=== PATIENT | female | born 1985 | race Asian ===

== ENCOUNTER 2017-03-02 21:29 | Emergency (ER) | payer SELFPAY ==
[~2017-03-02] VITALS: Ht 157.5 cm; Wt 54.9 kg
[2017-03-02 21:45] VITALS: TEMP 36.8; Ht 157.5 cm; Wt 54.9 kg
--- NOTE | 2017-03-02 22:21 | EMERGENCY ROOM VISIT NOTE ---
History Report prepared by Mónica: Jesse Nicholas Under the Supervision of: Dr. Galo Fischer M.D. First contact with patient: 22:09 Chief Complaint: FLU LIKE SX Stated Complaint: FLU LIKE SICK, AFTER EATING History of Present Illness The patient is a 31 year old female with a past medical history of asthma and gum disease who presents to the ED with a cc of constant vomiting after eating beginning two days ago. Pt states she cannot eat without vomiting. She is able to drink water only. Positive shakiness for the past two weeks, chills for the past two days that have worsened today. Negative cough, abdominal pain, recent antibiotics, alcohol use. LNMP was two weeks ago. The patient takes singular and albuterol. Source of History: patient Onset: two days ago Position: other (global) Quality: other (vomiting) Timing: constant Modifying Factors (Worsening): eating Associated Symptoms: + chills, No cough, No abdominal pain Note: Associated symptoms: shakiness Review of Systems See HPI for pertinent positives and negatives. A total of ten systems were reviewed and were otherwise negative. Past Medical & Surgical Medical Problems: (1) Asthma (2) Gum disease Family History Patient reports no known family medical history. Social History Smoking Status: Never Smoker Alcohol Use: none Marital Status: single Occupation Status: employed Current/Historical Medications Scheduled Cephalexin (Keflex), 1 CAP PO BID Fexofenadine Hcl (Ria Allergy), 180 MG PO DAILY Montelukast Sodium (Singulair), 10 MG PO HS Scheduled PRN Albuterol Hfa (Ventolin Hfa), 2-4 PUFFS INH Q6H PRN for SOB/Wheezing Allergies Coded Allergies: Avocado (Verified Allergy, Severe, SHORTNESS OF BREATH, 03/02/17) Cat Dander (Verified Allergy, Severe, ASTHMA ATTACK, 03/02/17) Chocolate (Verified Allergy, Severe, SHORTNESS OF BREATH, 03/02/17) Dog Dander (Verified Allergy, Severe, ASTHMA ATTACK, 03/02/17) Nut Tree (Verified Allergy, Severe, SHORTNESS OF BREATH, 03/02/17) Physical Exam Vital Signs Date Time Temp Pulse Resp B/P (MAP) Pulse Ox O2 Delivery O2 Flow Rate FiO2 03/03/17 00:29 82 16 108/72 96 03/02/17 21:45 36.8 78 16 106/69 96 Room Air Physical Exam GENERAL: Awake, alert, well-appearing, NAD HENT: Normocephalic, atraumatic. EYES: Normal conjunctiva. Sclera non-icteric. NECK: Supple. No nuchal rigidity. FROM. RESPIRATORY: CTAB, no rhonchi, wheezing, crackles CARDIAC: RRR, no MRG ABDOMEN: Soft, ND, BS+, mild epigastric pain. MSK: No chest wall TTP, no LE edema NEURO: GCS 15, CN 2-12 intact, moves all 4s on command SKIN: No rash or jaundice noted. Medical Decision & Procedures Laboratory Results 03/02/17 23:07 Red Blood Count 5.47, Mean Corpuscular Volume 63.4, Mean Corpuscular Hemoglobin 19.9, Mean Corpuscular Hemoglobin Concent 31.4, Mean Platelet Volume 10.4, Neutrophils (%) (Auto) 66.8, Lymphocytes (%) (Auto) 21.0, Monocytes (%) (Auto) 8.4, Eosinophils (%) (Auto) 3.3, Basophils (%) (Auto) 0.2, Neutrophils # (Auto) 8.00, Lymphocytes # (Auto) 2.51, Monocytes # (Auto) 1.01, Eosinophils # (Auto) 0.39, Basophils # (Auto) 0.02 03/02/17 23:07 Test 03/02/17 00:00 03/02/17 23:07 Urine Color YELLOW Urine Appearance CLOUDY (CLEAR) Urine pH 7.0 (4.5-7.5) Urine Specific [place] 1.023 (1.000-1.030) Urine Protein NEG (NEG) Urine Glucose (UA) NEG (NEG) Urine Ketones NEG (NEG) Urine Occult Blood NEG (NEG) Urine Nitrite NEG (NEG) Urine Bilirubin NEG (NEG) Urine Urobilinogen NEG (NEG) Urine Leukocyte Esterase SMALL (NEG) Urine WBC (Auto) 5-10 /hpf (0-5) Urine RBC (Auto) 0-4 /hpf (0-4) Urine Hyaline Casts (Auto) 1-5 /lpf (0-5) Urine Epithelial Cells (Auto) >30 /lpf (0-5) Urine Bacteria (Auto) 1+ (NEG) Urine Test POS (NEG) White Blood Count 11.97 K/uL (4.8-10.8) Red Blood Count 5.47 M/uL (4.2-5.4) Hemoglobin 10.9 g/dL (12.0-16.0) Hematocrit 34.7 % (37-47) Mean Corpuscular Volume 63.4 fL (80-100) Mean Corpuscular Hemoglobin 19.9 pg (25-34) Mean Corpuscular Hemoglobin Concent 31.4 g/dl (32-36) Platelet Count 287 K/uL (130-400) Mean Platelet Volume 10.4 fL (7.4-10.4) Neutrophils (%) (Auto) 66.8 % Lymphocytes (%) (Auto) 21.0 % Monocytes (%) (Auto) 8.4 % Eosinophils (%) (Auto) 3.3 % Basophils (%) (Auto) 0.2 % Neutrophils # (Auto) 8.00 K/uL (1.4-6.5) Lymphocytes # (Auto) 2.51 K/uL (1.2-3.4) Monocytes # (Auto) 1.01 K/uL (0.11-0.59) Eosinophils # (Auto) 0.39 K/uL (0-0.5) Basophils # (Auto) 0.02 K/uL (0-0.2) RDW Standard Deviation 33.5 fL (36.4-46.3) RDW Coefficient of Variation 14.7 % (11.5-14.5) Immature Granulocyte % (Auto) 0.3 % Immature Granulocyte # (Auto) 0.04 K/uL (0.00-0.02) Microcytosis PRESENT Anion Gap 6.0 mmol/L (3-11) Est Creatinine Clear Calc Drug Dose 180.8 ml/min Estimated GFR () > 150.0 Estimated GFR (Non- 144.7 BUN/Creatinine Ratio 30.4 (10-20) Calcium Level 8.3 mg/dl (8.5-10.1) Total Bilirubin 0.3 mg/dl (0.2-1) Direct Bilirubin 0.1 mg/dl (0-0.2) Aspartate Amino Transf (AST/SGOT) 9 U/L (15-37) Alanine Aminotransferase (ALT/SGPT) 15 U/L (12-78) Alkaline Phosphatase 47 U/L (45-117) Total Protein 7.6 gm/dl (6.4-8.2) Albumin 3.6 gm/dl (3.4-5.0) Lipase 196 U/L (73-393) Human Chorionic Gonadotropin, Quant 25735 mIU/mL Laboratory results reviewed by me Medications Administered Medications (Trade) Dose Ordered Sig/Zofia Route Start Time Stop Time Status Last Admin Dose Admin Ondansetron HCl (Zofran Inj) 4 mg NOW STAT IV 03/02/17 22:30 03/02/17 22:32 DC 03/02/17 23:08 4 MG Acetaminophen (Tylenol Tab) 1,000 mg NOW STAT PO 03/02/17 22:30 03/02/17 22:32 DC 03/02/17 23:08 1,000 MG Cephalexin Monohydrate (Keflex Cap) 500 mg NOW ONCE PO 03/02/17 23:15 03/02/17 23:16 DC 03/02/17 23:34 500 MG ED Course 2216: The patient was evaluated in room C11B. A complete history and physical exam was performed. 2354: I spoke with the patient via the disc pad plate filler. She understands what medication she can use. I told her to follow up with [facility] in [place] where she is originally from. The patient understands and agrees to the treatment plan and discharge instructions. Medical Decision The patient is a 31 year old female with a past medical history of asthma and gum disease who presents to the ED with a cc of constant vomiting after eating beginning two days ago. Differential diagnosis: Etiologies such as gastroenteritis, food borne illness, infections, appendicitis , diverticulitis, inflammatory bowel disease, obstruction, GI bleed, biliary pathology, as well as others were entertained. Patient was seen and evaluated the bedside. Patient had been complaining some mild vomiting after eating beginning 2 days ago. Patient denied any recent travel. Patient had a fairly unremarkable exam except for some mild epigastric discomfort however she had a soft abdomen and no right upper quadrant pain. Patient did have blood work completed along with a urinalysis and UPT. Patient did have a positive test test with possible concerns for UTI. In light of the patient's positive test patient was treated for UTI with Keflex. I did talk to the patient with the help of the mobile disc pad plate filler. Patient has had 1 prior in the past in 2005 the child is still living and is well. Patient's last menstrual period was February 22. I told the patient that given the recent positive in light of the recent menstrual period we would not likely see anything on ultrasound. Patient was told that she needs to take vitamins and avoid things like alcohol and tobacco. Patient may continue to take her allergy medications which should discuss this under the advisement of an [facility]. Patient was offered [facility] follow-up here; however, the patient states that while she works appear occasionally her home address is in [place] and she would seek care there. Patient did have a beta Quant that was sent along with blood work. Patient does have some mild anemia. Patient's MCV is low. Patient was instructed to follow-up with her [facility] to discuss iron supplementation. Patient had normal LFTs and lipase. Patient was able tolerate by mouth. Patient was deemed suitable for outpatient follow-up and treatment at this time.Patient was given strict follow-up, discharge, and return precautions. All questions were answered. Patient was deemed suitable for outpatient follow-up at this time. Patient agreed with the plan of care and was safely discharged home. Impression Primary Impression: Additional Impression: UTI (urinary tract infection) Scribe Attestation The scribe's documentation has been prepared under my direction and personally reviewed by me in its entirety. I confirm that the note above accurately reflects all work, treatment, procedures, and medical decision making performed by me. Departure Information Dispostion Home / Self-Care Prescriptions Cephalexin (KEFLEX) 500 Mg Cap 1 CAP PO BID for 7 Days, #14 CAP Prov: Galo Fischer M.D. 03/03/17 Referrals No Doctor, Assigned (PCP) Forms HOME CARE DOCUMENTATION FORM, IMPORTANT VISIT INFORMATION Patient Instructions ED UTI Cystitis Female, My [facility], Preg 1st Trimester, Preg Nutrition Additional Instructions Please return to the emergency department if you have worsening or recurrent symptoms not amenable to at-home treatment. Please call for a follow-up appointment with her primary care physician. Please take your medications as prescribed. If you have other concerns and/or complaints please feel free to also call your primary care physician's office or return the ED for further evaluation, management, and treatment. Take your medications as prescribed. If taking an antibiotic consider taking a probiotic and/or eating yogurt, but at the least, please take with food as it can cause upset stomach. Please take vitamins and avoid things like alcohol and tobacco. Also avoid NSAIDs like aspirin, Motrin, Aleve, and naproxen. Please follow-up with an [facility] physician when you return here home in [place]. You have been examined and treated today on an emergency basis only. This is not a substitute for, or an effort to provide, complete comprehensive medical care. It is impossible to recognize and treat all injuries or illnesses in a single emergency department visit. It is therefore important that you follow up closely with [facility], your PCP, and/or your specialist(s). Call as soon as possible for an appointment. Thank you for your time and consideration. I look forward to speaking with you again soon. Please don't hesitate to call us if you have any questions. Problem Qualifiers Primary Impression: Weeks of gestation: less than 8 weeks Qualified Codes: Z3A.01 - Less than 8 weeks gestation of Additional Impression: UTI (urinary tract infection) Urinary tract infection type: acute cystitis Hematuria presence: without hematuria Qualified Codes: N30.00 - Acute cystitis without hematuria
[2017-03-02] MEDS ORDERED: ONDANSETRON INJ 2 MG/ML 2 ML VIAL IV STA (22:30)
[2017-03-02] MEDS ORDERED: ACETAMINOPHEN 500 MG TAB PO STA (22:30)
[2017-03-02] MEDS ORDERED: KETOROLAC TROMETHAMINE 30 MG/ML VIAL IV STA (22:30)
[2017-03-02 23:06] LABS: URINE APPEARANCE CLOUDY (CLEAR); URINE BILIRUBIN NEG (NEG); URINE COLOR YELLOW; URINE EPITHELIAL CELL AUTO >30 /lpf (0-5); URINE NITRITE NEG (NEG); URINE SPECIFIC GRAVITY 1.023 (1.000-1.030); UROBILINOGEN NEG (NEG); ZZUR CULT IF INDIC CLEAN CATCH YES
[2017-03-02 23:07] LABS: MANUAL MICROSCOPIC REQUIRED? NO; REVIEW REQ? NO
[2017-03-02] MEDS ORDERED: CEPHALEXIN MONOHYDRATE 250 MG CAP PO ONE (23:15)
[2017-03-02 23:21] LABS: BASO % 0.2 %; BASO ABS # 0.02 K/uL (0-0.2); EOS % 3.3 %; HEMATOCRIT 34.7 % (37-47); IG% 0.3 %; LYMPH ABS # 2.51 K/uL (1.2-3.4); MEAN CELL VOLUME 63.4 fL (80-100); MEAN CORPUSCULAR HEMOGLOBIN 19.9 pg (25-34); MEAN CORPUSCULAR HGB CONC 31.4 g/dl (32-36); MEAN PLATELET VOLUME 10.4 fL (7.4-10.4); MONO % 8.4 %; NEUT % 66.8 %; PLATELET COUNT 287 K/uL (130-400); RED BLOOD COUNT 5.47 M/uL (4.2-5.4); WHITE BLOOD COUNT 11.97 K/uL (4.8-10.8)
[2017-03-02 23:42] LABS: ALT/SGPT 15 U/L (12-78); BLOOD UREA NITROGEN 11 mg/dl (7-18); BUN/CREATININE RATIO 30.4 (10-20); CALCIUM 8.3 mg/dl (8.5-10.1); CARBON DIOXIDE 24 mmol/L (21-32); CHLORIDE 109 mmol/L (98-107); CREATININE 0.36 mg/dl (0.60-1.20); GLUCOSE 90 mg/dl (70-99); POTASSIUM 3.5 mmol/L (3.5-5.1); SODIUM 139 mmol/L (136-145)
[2017-03-02 23:45] LABS: ALKALINE PHOSPHATASE 47 U/L (45-117); AST/SGOT 9 U/L (15-37)
[2017-03-03] MEDS ORDERED: CEPH-571 PO (00:15)
[2017-03-03 00:25] LABS: COMPLETE YES; MICROCYTOSIS PRESENT
[2017-03-03 00:29] VITALS: BP 108/72; PULSE 82; O2SAT 96
--- NOTE | 2017-03-05 12:12 | Pharmacy Progress Note ---
ED Pharmacist Culture FollowUp Date of Service: Mar 05, 2017. Patient was sent home with a prescription for Cephalexin 500mg PO BId x 7 days, which should cover the e coli growing from the patient's URINE culture.
== END 2017-03-03 00:30 | disposition home or self-care (01) ==
LOC: C.EDB 21:33 → C.EDC 03-03 00:30
DX: O23.41 Unspecified infection of urinary tract in pregnancy, first trimester (principal); O99.511 Diseases of the respiratory system complicating pregnancy, first trimester; J45.909 Unspecified asthma, uncomplicated; Z3A.01 Less than 8 weeks gestation of pregnancy; Z79.899 Other long term (current) drug therapy

== ENCOUNTER 2017-03-06 19:53 | Inpatient (IN) | payer SELFPAY ==
[~2017-03-06] VITALS: Ht 165.1 cm; Wt 54.2 kg
[~2017-03-06 19:53] MED LIST: CEPH-571 PO
[2017-03-06] MEDS ORDERED: SODIUM CHLORIDE 0.9% 1000ML 1,000 ML IV SCH (20:30)
[2017-03-06 20:37] LABS: URINE APPEARANCE CLOUDY (CLEAR); URINE BILIRUBIN NEG (NEG); URINE COLOR YELLOW; URINE EPITHELIAL CELL AUTO >30 /lpf (0-5); URINE NITRITE NEG (NEG); URINE PH 7.5 (4.5-7.5); URINE SPECIFIC GRAVITY 1.019 (1.000-1.030); UROBILINOGEN NEG (NEG); ZZUR CULT IF INDIC CLEAN CATCH YES
--- NOTE | 2017-03-06 20:40 | EMERGENCY ROOM VISIT NOTE ---
History First contact with patient: 20:02 Chief Complaint: ABDOMINAL PAIN Stated Complaint: UTI Nursing Triage Summary: + . C/o worsening abdominal pain. Seen here last 3 days for same s/s. History of Present Illness The patient is a 31 year old female who presents to the Emergency Room with complaints of right flank pain for one day Patient is . LMP was . She reports right sided constant pain. She describes the pain as pressure, as if someone is hitting in her side. Patient reports associated nausea with the pain, but denies throwing up. She also reports some general abdominal pain that is worse with food. She denies abnormal vaginal bleeding, discharge or vaginal rash or itching. Patient also denies hematuria, dysuria or increased frequency. She does report feeling fatigued, jittery and having palpitations since finding out that she is . Review of Systems see below Constitutional: No fever, No chills, No sweats Respiratory: No cough, No wheezing, No shortness of breath, No dyspnea on exertion Cardiovascular: + palpitations, No chest pain, No edema Abdomen: + pain, + nausea, No vomiting, No diarrhea Genitourinary - Female: No dysuria, No urinary frequency, No urinary urgency , No hematuria Past Medical/Surgical History Medical Problems: (1) Asthma (2) Gum disease Family History Patient reports no known family medical history. Social History Smoking Status: Never Smoker Alcohol Use: none Marital Status: single Occupation Status: employed Current/Historical Medications Scheduled Cephalexin (Keflex), 1 CAP PO BID Fexofenadine Hcl (Ria Allergy), 180 MG PO DAILY Montelukast Sodium (Singulair), 10 MG PO HS Scheduled PRN Albuterol Hfa (Ventolin Hfa), 2-4 PUFFS INH Q6H PRN for SOB/Wheezing Physical Exam Vital Signs Date Time Temp Pulse Resp B/P (MAP) Pulse Ox O2 Delivery O2 Flow Rate FiO2 03/06/17 19:57 36.7 82 18 109/59 97 Room Air Physical Exam see below General Appearance: WD/WN, no apparent distress Head: normocephalic, atraumatic Respiratory/Chest: chest non-tender, lungs clear, normal breath sounds, no respiratory distress, no accessory muscle use Cardiovascular: regular rate, rhythm, no edema, no gallop Abdomen / GI: normal bowel sounds, soft, no organomegaly, no pulsatile mass , + tenderness Back: no CVA tenderness Neurologic/Psych: alert, normal mood/affect, normal reflexes Medical Decision & Procedures ER Provider Diagnostic Interpretation: <14 WKS SINGLE CLINICAL HISTORY: Abdominal pain. . COMPARISON STUDY: No previous studies for comparison. TECHNIQUE: Sonography of the pelvis was performed. FINDINGS: Intrauterine gestational sac is noted which contains a yolk sac that measures 4 mm in size. A pole is noted with a crown-rump length of 8.3 mm which corresponds to an estimated gestational age of 6 weeks and 5 days. heart rate is normal 138 bpm. There is a 1.4 x 1 x 1.8 cm suspected subchorionic hematoma. The right ovary is normal. There is a 1.9 cm left ovarian corpus luteal cyst. No free fluid is identified. IMPRESSION: 1. Single viable intrauterine gestation with estimated gestational age of 6 weeks and 5 days on this exam. Normal heart rate of 138 bpm. 2. Suspected small subchorionic hematoma measuring 1.8 x 1.4 x 1 cm. 3. Left ovarian corpus luteal cyst. RENAL ULTRASOUND CLINICAL HISTORY: Right flank pain. Urinary tract infection. . COMPARISON STUDY: None. TECHNIQUE: Sonography of the kidneys and the urinary bladder was performed. FINDINGS: The right kidney measures 11.7 cm in maximal dimension and the left measures 11.2 cm. No calculi or masses are identified by sonography. The left ureteral jet was visualized. The right ureteral jet was not visualized. There is slight dilatation of each collecting system without bandar hydronephrosis. IMPRESSION: 1. Slight dilatation of each collecting system without bandar hydronephrosis. No calculi identified by sonography. 2. Nonvisualization of the right ureteral jet. Electronically signed by: Khanh Degroot M.D. 03/06/2017 10:10 PM Dictated Date/Time: 03/06/2017 10:08 PM Laboratory Results 03/06/17 20:55 Red Blood Count 5.53, Mean Corpuscular Volume 62.6, Mean Corpuscular Hemoglobin 20.1, Mean Corpuscular Hemoglobin Concent 32.1, Mean Platelet Volume 10.6, Neutrophils (%) (Auto) 63.2, Lymphocytes (%) (Auto) 25.4, Monocytes (%) (Auto) 8.7, Eosinophils (%) (Auto) 2.5, Basophils (%) (Auto) 0.1, Neutrophils # (Auto) 6.51, Lymphocytes # (Auto) 2.62, Monocytes # (Auto) 0.90, Eosinophils # (Auto) 0.26, Basophils # (Auto) 0.01 03/06/17 20:55 Test 03/06/17 20:03 03/06/17 20:55 Urine Color YELLOW Urine Appearance CLOUDY (CLEAR) Urine pH 7.5 (4.5-7.5) Urine Specific [place] 1.019 (1.000-1.030) Urine Protein NEG (NEG) Urine Glucose (UA) NEG (NEG) Urine Ketones NEG (NEG) Urine Occult Blood TRACE (NEG) Urine Nitrite NEG (NEG) Urine Bilirubin NEG (NEG) Urine Urobilinogen NEG (NEG) Urine Leukocyte Esterase LARGE (NEG) Urine WBC (Auto) >30 /hpf (0-5) Urine RBC (Auto) 0-4 /hpf (0-4) Urine Hyaline Casts (Auto) 1-5 /lpf (0-5) Urine Epithelial Cells (Auto) >30 /lpf (0-5) Urine Bacteria (Auto) 1+ (NEG) White Blood Count 10.31 K/uL (4.8-10.8) Red Blood Count 5.53 M/uL (4.2-5.4) Hemoglobin 11.1 g/dL (12.0-16.0) Hematocrit 34.6 % (37-47) Mean Corpuscular Volume 62.6 fL (80-100) Mean Corpuscular Hemoglobin 20.1 pg (25-34) Mean Corpuscular Hemoglobin Concent 32.1 g/dl (32-36) Platelet Count 281 K/uL (130-400) Mean Platelet Volume 10.6 fL (7.4-10.4) Neutrophils (%) (Auto) 63.2 % Lymphocytes (%) (Auto) 25.4 % Monocytes (%) (Auto) 8.7 % Eosinophils (%) (Auto) 2.5 % Basophils (%) (Auto) 0.1 % Neutrophils # (Auto) 6.51 K/uL (1.4-6.5) Lymphocytes # (Auto) 2.62 K/uL (1.2-3.4) Monocytes # (Auto) 0.90 K/uL (0.11-0.59) Eosinophils # (Auto) 0.26 K/uL (0-0.5) Basophils # (Auto) 0.01 K/uL (0-0.2) RDW Standard Deviation 32.8 fL (36.4-46.3) RDW Coefficient of Variation 14.5 % (11.5-14.5) Immature Granulocyte % (Auto) 0.1 % Immature Granulocyte # (Auto) 0.01 K/uL (0.00-0.02) Microcytosis PRESENT Anion Gap 7.0 mmol/L (3-11) Est Creatinine Clear Calc Drug Dose 167.6 ml/min Estimated GFR () > 150.0 Estimated GFR (Non- 137.5 BUN/Creatinine Ratio 23.3 (10-20) Calcium Level 8.5 mg/dl (8.5-10.1) Total Bilirubin 0.3 mg/dl (0.2-1) Aspartate Amino Transf (AST/SGOT) 9 U/L (15-37) Alanine Aminotransferase (ALT/SGPT) 12 U/L (12-78) Alkaline Phosphatase 42 U/L (45-117) Total Protein 7.3 gm/dl (6.4-8.2) Albumin 3.5 gm/dl (3.4-5.0) Globulin 3.8 gm/dl (2.5-4.0) Albumin/Globulin Ratio 0.9 (0.9-2) Human Chorionic Gonadotropin, Quant 47379 mIU/mL Medications Administered Medications (Trade) Dose Ordered Sig/Zofia Route Start Time Stop Time Status Last Admin Dose Admin Sodium Chloride 1,000 ml @ 999 mls/hr Q1H1M IV 03/06/17 20:30 04/05/17 20:29 03/06/17 21:07 999 MLS/HR Ceftriaxone Sodium (Rocephin Inj) 1 gm NOW STAT IV 03/06/17 21:05 03/06/17 21:06 DC 03/06/17 21:19 1 GM Medical Decision 31 female comes into the ED with right sided tenderness for one day Patient was seen in the ED on Mar 03 and treated for a urinary tract infection with Keflex. Patient reports being 2 weeks ; LMP was 2 weeks ago. Today considering the following differential for the abdominal pain; pyelonephritis, kidney stone, ectopic , gastroenteritis, muscle strain. Ordered the following labs; UA, CBC, CMP, USG of pelvis and kidney. Patient was given 1L NS bolus. UA was positive for infection; patient was given 1g of Rocephin. Previous ED visit showed pansensitive Ecoli. Patient had a WBC of 10.1 and was afebrile. Renal USG showed dilation of the collecting system without bandar hydro, no urethral jet. Pelvic USG showed 6 week, 5 day fetus. heart rate, 138. In summary, the patient has failed treatment for UTI and now is presenting with a potential ascending infection. The patient is 6 weeks and is not currently being followed for care. Discussed the case with Dr. Davidson from OBGYN. She recommended the patient to be admitted and treated by the medicine service. Discussed the case with the hospitalist, Dr. Harmon. In addition, case management discussed with the patient regarding follow up and insurance options. Patient is Mongolian and cannot speak Chilean. is able to understand and can speak limited Chilean. Used video translation service for detailed interviewing. Impression Primary Impression: Pyelonephritis during Departure Information Referrals No Doctor, Assigned (PCP) Patient Instructions My [facility] [employer] Additional Instructions Acetaminophen(Tylenol) may be used for fever or pain. Use 1000mg every eight hours as needed. Avoid using more than 3000mg in a 24 hour period. This is available over the counter. Read all the package inserts or medication information paperwork provided. If you have any questions or concerns call your primary provider, pharmacist or the ER for assistance. Rest and drink plenty of fluids as tolerated. Slow sips of water or sports drinks are recommended instead of large amounts all at once. Continue current medications. Once your stomach is settled start with a clear liquid diet (jello, soup broth, etc.) and then advance as tolerated. You should avoid full, heavy meals for about 24 hrs from the time your symptoms resolved. Return to the ER immediately for worsening or persistent abdominal/back pain, vomiting, fevers, worsening of your condition, or as needed. Follow up with your primary physician within 2-3 days for a recheck of the current condition
[2017-03-06 20:48] LABS: MANUAL MICROSCOPIC REQUIRED? NO; REVIEW REQ? NO
[2017-03-06] MEDS ORDERED: CEFTRIAXONE SOD INJ 1 GM ADDVIAL IV STA (21:05)
[2017-03-06 21:07] LABS: BASO % 0.1 %; BASO ABS # 0.01 K/uL (0-0.2); EOS % 2.5 %; HEMATOCRIT 34.6 % (37-47); IG% 0.1 %; LYMPH % 25.4 %; LYMPH ABS # 2.62 K/uL (1.2-3.4); MEAN CELL VOLUME 62.6 fL (80-100); MEAN CORPUSCULAR HEMOGLOBIN 20.1 pg (25-34); MEAN CORPUSCULAR HGB CONC 32.1 g/dl (32-36); MEAN PLATELET VOLUME 10.6 fL (7.4-10.4); MONO % 8.7 %; NEUT % 63.2 %; PLATELET COUNT 281 K/uL (130-400); RED BLOOD COUNT 5.53 M/uL (4.2-5.4); WHITE BLOOD COUNT 10.31 K/uL (4.8-10.8)
[2017-03-06 21:23] LABS: ALT/SGPT 12 U/L (12-78); BLOOD UREA NITROGEN 10 mg/dl (7-18); BUN/CREATININE RATIO 23.3 (10-20); CALCIUM 8.5 mg/dl (8.5-10.1); CARBON DIOXIDE 25 mmol/L (21-32); CHLORIDE 106 mmol/L (98-107); CREATININE 0.42 mg/dl (0.60-1.20); GLUCOSE 85 mg/dl (70-99); POTASSIUM 3.5 mmol/L (3.5-5.1); SODIUM 138 mmol/L (136-145)
[2017-03-06 21:26] LABS: ALB/GLOB RATIO 0.9 (0.9-2); ALKALINE PHOSPHATASE 42 U/L (45-117); AST/SGOT 9 U/L (15-37)
[2017-03-06 21:38] LABS: COMPLETE YES; MICROCYTOSIS PRESENT
--- NOTE | 2017-03-06 22:10 | EMERGENCY ROOM VISIT NOTE ---
ED Visit Note First contact with patient: 20:02 Resident Physician Supervision Note: I was present with Dr. Jo during the history and exam. I discussed the case with the resident and agree with the findings and plan as documented in the note. Documented By: aSe Villar
--- NOTE | 2017-03-06 22:11 | DIAGNOSTIC IMAGING REPORT ---
RENAL ULTRASOUND CLINICAL HISTORY: Right flank pain. Urinary tract infection. . COMPARISON STUDY: None. TECHNIQUE: Sonography of the kidneys and the urinary bladder was performed. FINDINGS: The right kidney measures 11.7 cm in maximal dimension and the left measures 11.2 cm. No calculi or masses are identified by sonography. The left ureteral jet was visualized. The right ureteral jet was not visualized. There is slight dilatation of each collecting system without bandar hydronephrosis. IMPRESSION: 1. Slight dilatation of each collecting system without bandar hydronephrosis. No calculi identified by sonography. 2. Nonvisualization of the right ureteral jet. Electronically signed by: Khanh Degroot M.D. 03/06/2017 10:10 PM Dictated Date/Time: 03/06/2017 10:08 PM
--- NOTE | 2017-03-06 22:16 | DIAGNOSTIC IMAGING REPORT ---
<14 WKS SINGLE CLINICAL HISTORY: Abdominal pain. . COMPARISON STUDY: No previous studies for comparison. TECHNIQUE: Sonography of the pelvis was performed. FINDINGS: Intrauterine gestational sac is noted which contains a yolk sac that measures 4 mm in size. A pole is noted with a crown-rump length of 8.3 mm which corresponds to an estimated gestational age of 6 weeks and 5 days. heart rate is normal 138 bpm. There is a 1.4 x 1 x 1.8 cm suspected subchorionic hematoma. The right ovary is normal. There is a 1.9 cm left ovarian corpus luteal cyst. No free fluid is identified. IMPRESSION: 1. Single viable intrauterine gestation with estimated gestational age of 6 weeks and 5 days on this exam. Normal heart rate of 138 bpm. 2. Suspected small subchorionic hematoma measuring 1.8 x 1.4 x 1 cm. 3. Left ovarian corpus luteal cyst. Electronically signed by: Khanh Degroot M.D. 03/06/2017 10:14 PM Dictated Date/Time: 03/06/2017 10:10 PM
[2017-03-06] MEDS ORDERED: VNTHFA/IN INH (23:01)
[2017-03-06] MEDS ORDERED: MONT1TAB3 PO (23:01)
[2017-03-06] MEDS ORDERED: FEXO1TAB49 PO (23:01)
--- NOTE | 2017-03-07 00:11 | History and Physical ---
History & Physical Date & Time of Service: Mar 07, 2017 at 00:11 Chief Complaint: UTI Primary Care Physician: No Doctor, Assigned History of Present Illness Source: patient, hospital records This is a 31 yo f at 5 weeks GA was was seen in the ED for right flank pain. The patient was seen on Mar 02 and found to have a UTI and was given Keflex and d/c home. The patient started to develop right flank pain over the last 24 hours and as she was recommended to come back to ED for worsening symptoms. Patient has been afebrile and denies dysuria, vaginal bleeding/ discharge. Limited ability to describe pain secondary to language limitations. Past Medical/Surgical History Family History Patient reports no known family medical history. Social History Smoking Status: Never Smoker Smokeless Tobacco Use: No Alcohol Use: socially Drug Use: none Marital Status: in relationship Occupational Status: employed Immunizations History of Influenza Vaccine: Unknown History of Tetanus Vaccine?: Unknown History of Pneumococcal: Unknown History of Hepatitis B Vaccine: Unknown Multi-Drug Resistant Organisms History of MDRO: No Allergies Coded Allergies: Avocado (Verified Allergy, Severe, SHORTNESS OF BREATH, 03/02/17) Cat Dander (Verified Allergy, Severe, ASTHMA ATTACK, 03/02/17) Chocolate (Verified Allergy, Severe, SHORTNESS OF BREATH, 03/02/17) Dog Dander (Verified Allergy, Severe, ASTHMA ATTACK, 03/02/17) Nut Tree (Verified Allergy, Severe, SHORTNESS OF BREATH, 03/02/17) Home Medications Scheduled Cephalexin (Keflex), 1 CAP PO BID Fexofenadine Hcl (Ria Allergy), 180 MG PO DAILY Montelukast Sodium (Singulair), 10 MG PO HS Scheduled PRN Albuterol Hfa (Ventolin Hfa), 2-4 PUFFS INH Q6H PRN for SOB/Wheezing Review of Systems Limited ROS secondary to language barrier Physical Exam Vital Signs Date Time Temp Pulse Resp B/P (MAP) Pulse Ox O2 Delivery O2 Flow Rate FiO2 03/06/17 22:06 74 18 100/65 100 Room Air 03/06/17 19:57 36.7 82 18 109/59 97 Room Air General Appearance: no apparent distress Head: normocephalic, atraumatic Eyes: normal inspection ENT: normal ENT inspection Neck: supple Respiratory/Chest: normal breath sounds, no respiratory distress, no accessory muscle use Cardiovascular: regular rate, rhythm, no murmur, normal peripheral pulses Abdomen/GI: normal bowel sounds, non tender, soft Back: normal inspection, no CVA tenderness Extremities/Musculoskelatal: normal inspection, no calf tenderness, no pedal edema Neurologic/Psych: alert, normal mood/affect, oriented x 3 Skin: normal color, warm/dry, no rash Lymphatic: no adenopathy Diagnostics Laboratory Results Results Past 24 Hours Test 03/06/17 20:03 03/06/17 20:55 Range/Units Urine Color YELLOW Urine Appearance CLOUDY CLEAR Urine pH 7.5 4.5-7.5 Urine Specific [place] 1.019 1.000-1.030 Urine Protein NEG NEG Urine Glucose (UA) NEG NEG Urine Ketones NEG NEG Urine Occult Blood TRACE NEG Urine Nitrite NEG NEG Urine Bilirubin NEG NEG Urine Urobilinogen NEG NEG Urine Leukocyte Esterase LARGE NEG Urine WBC (Auto) >30 0-5 /hpf Urine RBC (Auto) 0-4 0-4 /hpf Urine Hyaline Casts (Auto) 1-5 0-5 /lpf Urine Epithelial Cells (Auto) >30 0-5 /lpf Urine Bacteria (Auto) 1+ NEG White Blood Count 10.31 4.8-10.8 K/uL Red Blood Count 5.53 4.2-5.4 M/uL Hemoglobin 11.1 12.0-16.0 g/dL Hematocrit 34.6 37-47 % Mean Corpuscular Volume 62.6 80-100 fL Mean Corpuscular Hemoglobin 20.1 25-34 pg Mean Corpuscular Hemoglobin Concent 32.1 32-36 g/dl Platelet Count 281 130-400 K/uL Mean Platelet Volume 10.6 7.4-10.4 fL Neutrophils (%) (Auto) 63.2 % Lymphocytes (%) (Auto) 25.4 % Monocytes (%) (Auto) 8.7 % Eosinophils (%) (Auto) 2.5 % Basophils (%) (Auto) 0.1 % Neutrophils # (Auto) 6.51 1.4-6.5 K/uL Lymphocytes # (Auto) 2.62 1.2-3.4 K/uL Monocytes # (Auto) 0.90 0.11-0.59 K/uL Eosinophils # (Auto) 0.26 0-0.5 K/uL Basophils # (Auto) 0.01 0-0.2 K/uL RDW Standard Deviation 32.8 36.4-46.3 fL RDW Coefficient of Variation 14.5 11.5-14.5 % Immature Granulocyte % (Auto) 0.1 % Immature Granulocyte # (Auto) 0.01 0.00-0.02 K/uL Microcytosis PRESENT Sodium Level 138 136-145 mmol/L Potassium Level 3.5 3.5-5.1 mmol/L Chloride Level 106 98-107 mmol/L Carbon Dioxide Level 25 21-32 mmol/L Anion Gap 7.0 3-11 mmol/L Blood Urea Nitrogen 10 7-18 mg/dl Creatinine 0.42 0.60-1.20 mg/dl Est Creatinine Clear Calc Drug Dose 167.6 ml/min Estimated GFR () > 150.0 Estimated GFR (Non- 137.5 BUN/Creatinine Ratio 23.3 10-20 Random Glucose 85 70-99 mg/dl Calcium Level 8.5 8.5-10.1 mg/dl Total Bilirubin 0.3 0.2-1 mg/dl Aspartate Amino Transf (AST/SGOT) 9 15-37 U/L Alanine Aminotransferase (ALT/SGPT) 12 12-78 U/L Alkaline Phosphatase 42 45-117 U/L Total Protein 7.3 6.4-8.2 gm/dl Albumin 3.5 3.4-5.0 gm/dl Globulin 3.8 2.5-4.0 gm/dl Albumin/Globulin Ratio 0.9 0.9-2 Human Chorionic Gonadotropin, Quant 75041 mIU/mL Microbiology Results 03/06/17 Urine Culture, Received Pending Diagnostic Radiology <14 WKS SINGLE CLINICAL HISTORY: Abdominal pain. . COMPARISON STUDY: No previous studies for comparison. TECHNIQUE: Sonography of the pelvis was performed. FINDINGS: Intrauterine gestational sac is noted which contains a yolk sac that measures 4 mm in size. A pole is noted with a crown-rump length of 8.3 mm which corresponds to an estimated gestational age of 6 weeks and 5 days. heart rate is normal 138 bpm. There is a 1.4 x 1 x 1.8 cm suspected subchorionic hematoma. The right ovary is normal. There is a 1.9 cm left ovarian corpus luteal cyst. No free fluid is identified. IMPRESSION: 1. Single viable intrauterine gestation with estimated gestational age of 6 weeks and 5 days on this exam. Normal heart rate of 138 bpm. 2. Suspected small subchorionic hematoma measuring 1.8 x 1.4 x 1 cm. 3. Left ovarian corpus luteal cyst. CLINICAL HISTORY: Right flank pain. Urinary tract infection. . COMPARISON STUDY: None. TECHNIQUE: Sonography of the kidneys and the urinary bladder was performed. FINDINGS: The right kidney measures 11.7 cm in maximal dimension and the left measures 11.2 cm. No calculi or masses are identified by sonography. The left ureteral jet was visualized. The right ureteral jet was not visualized. There is slight dilatation of each collecting system without bandar hydronephrosis. IMPRESSION: 1. Slight dilatation of each collecting system without bandar hydronephrosis. No calculi identified by sonography. 2. Nonvisualization of the right ureteral jet. Impression Assessment and Plan This is a 31 yo f with failure of outpt mx of UTI and 5 weeks GA Failure of outpt mx of UTI - Rocephin - med surg admission - monitor for S&S of vaginal bleeding - consult OB SCD for dvt prophylaxis Attending addendum: I have physically seen this patient, have supervised the medical residents activities, and agree with the H&P unless as otherwise noted. Assessment and Plan: Escherichia coli UTI from March 02/failure of outpatient treatment with Keflex -- Admitted to medical surgical floor Continue ceftriaxone 1 g IV daily begun in the emergency department Hydrate with IV fluids Approximate five-week Discussed with Dr. Davidson from [facility], who will consult on the patient while in hospital. Ultrasound performed in ED was normal Asthma-- Continue Singulair Albuterol HFA 2 puffs every 6 hours when necessary Consult social worker palliative care Level of Care Med/Surg Advanced Directives Existing Advance Directive: No Existing Living Will: No Existing Power of Imaging Tech: No Resuscitation Status FULL RESUSCITATION VTE Prophylaxis VTE Risk Assessment Done? Y/N: Yes Risk Level: Moderate Given or contraindicated: SCD's Social Service Consult None Apply Note Total Time: Critical Care 30 - 74 minutes
[2017-03-07] MEDS ORDERED: ACETAMINOPHEN 325 MG TAB PO PRN (00:15)
[2017-03-07] MEDS ORDERED: ONDANSETRON INJ 2 MG/ML 2 ML VIAL IV PRN (00:15)
[2017-03-07 02:56] VITALS: BP 110/75; PULSE 89; TEMP 36.6; O2SAT 97; Ht 165.1 cm; Wt 54.2 kg
[2017-03-07] MEDS ORDERED: ALBUTEROL HFA 8 GM INHALER INH PRN (06:15)
[2017-03-07 07:18] VITALS: BP 89/55; PULSE 76; TEMP 37.4; O2SAT 97
[2017-03-07] MEDS ORDERED: INFLUENZA VIRUS QUAD VACCINE 0.5 ML SYR IM. ONE (08:00)
[2017-03-07] MEDS ORDERED: INFLUENZA ADMINISTRATION CHARGE ONE (08:00)
[2017-03-07] MEDS ORDERED: AMPI500C9 PO (10:26)
[2017-03-07 10:27] LABS: FERRITIN 26.5 ng/ml (8.0-388.0)
--- NOTE | 2017-03-07 10:34 | Discharge Instructions ---
Discharge Instructions Date of Service Mar 07, 2017. Admission Reason for Admission: Failure Of Outpatient Treatment, Uti Discharge Discharge Diagnosis / Problem: Urinary tract infection Discharge Goals Goal(s): Improve disease control Activity Recommendations Activity Limitations: resume your previous activity Exercise/Sports Limitations: as tolerated May Resume Sexual Activity: when tolerated Shower/Bathe: no limitations . Instructions / Follow-Up Instructions / Follow-Up Follow up with Dr. Duenas as arranged. Make sure to also get health insurance as you will need this for the baby as well. Drink lots of water and avoid getting dehydrated. Take the tablet four times per day,and take it with food. If you notice further fevers, pain, worsening when you pee, nausea, or vomiting , please return to the ED. We also ordered some blood tests to evaluate your low blood count (also known as ANEMIA). Once you get a primary doctor, please follow up this with them. Current Hospital Diet Patient's current hospital diet: Regular Diet Discharge Diet Recommended Diet: Regular Diet Pending Studies Studies pending at discharge: yes List of pending studies: Urine culture Medical Emergencies . Who to Call and When: Medical Emergencies: If at any time you feel your situation is an emergency, please call 911 immediately. . Non-Emergent Contact Non-Emergency issues call your: Primary Care Provider, Locker Room Clerk Call Non-Emergent contact if: you have a fever, your pain is worsening . . "Provider Documentation" section prepared by Daksha Monge. . VTE Core Measure Inpt VTE Proph given/why not?: SCD's
--- NOTE | 2017-03-07 10:35 | Discharge Summary ---
Discharge Summary Date of Service Mar 07, 2017. Discharge Summary Admission Date: Mar 07, 2017 at 00:09 Discharge Date: Mar 07, 2017 Discharge Disposition: Home Principal Diagnosis: Urinary tract infection, failed outpatient tx Immunizations: Have You Had Influenza Vaccine: Unknown History of Tetanus Vaccine?: Unknown History of Pneumococcal: Unknown History of Hepatitis B Vaccine: Unknown Procedures: <14 WKS SINGLE US FINDINGS: Intrauterine gestational sac is noted which contains a yolk sac that measures 4 mm in size. A pole is noted with a crown-rump length of 8.3 mm which corresponds to an estimated gestational age of 6 weeks and 5 days. heart rate is normal 138 bpm. There is a 1.4 x 1 x 1.8 cm suspected subchorionic hematoma. The right ovary is normal. There is a 1.9 cm left ovarian corpus luteal cyst. No free fluid is identified. IMPRESSION: 1. Single viable intrauterine gestation with estimated gestational age of 6 weeks and 5 days on this exam. Normal heart rate of 138 bpm. 2. Suspected small subchorionic hematoma measuring 1.8 x 1.4 x 1 cm. 3. Left ovarian corpus luteal cyst. RENAL US IMPRESSION: 1. Slight dilatation of each collecting system without bandar hydronephrosis. No calculi identified by sonography. 2. Nonvisualization of the right ureteral jet. Consultations: Case was discussed w/Dr. Duenas, [facility] Medication Reconciliation New Medications: Ampicillin (Ampicillin) 500 Mg Cap 1 CAP PO QID for 9 Days, #36 CAP Continued Medications: Albuterol Hfa (Ventolin Hfa) 200 Puffs/74251 Mcg Aers 2-4 PUFFS INH Q6H PRN for SOB/Wheezing, INHALER Fexofenadine Hcl (Ria Allergy) 180 Mg Tab 180 MG PO DAILY, TAB Montelukast Sodium (Singulair) 10 Mg Tab 10 MG PO HS, TAB Discontinued Medications: Cephalexin (Keflex) 500 Mg Cap 1 CAP PO BID for 7 Days, #14 CAP Discharge Exam Review of Systems: Constitutional: No fever, No chills, No sweats, No weight loss, No weakness Eyes: No worsening of vision ENT: No hearing loss Respiratory: No cough, No sputum, No wheezing, No shortness of breath Cardiovascular: No chest pain, No orthopnea Abdomen: + pain (mild RUQ pain), No nausea, No vomiting, No diarrhea, No constipation Musculoskeletal: No joint pain, No muscle pain Genitourinary - Female: No dysuria, No urinary frequency, No hematuria, No vaginal bleeding Neurologic: No memory loss, No paralysis Psychiatric: No depression symptoms Endocrine: No fatigue Hematologic / Lymphatic: No abnormal bleeding/bruising Integumentary: No rash Physical Exam: General Appearance: WD/WN, no apparent distress, + thin Eyes: normal inspection, PERRL, EOMI ENT: hearing grossly normal Neck: supple, thyroid normal, no JVD Respiratory/Chest: lungs clear, normal breath sounds, no respiratory distress Cardiovascular: regular rate, rhythm, no murmur, normal peripheral pulses Abdomen / GI: normal bowel sounds, non tender, soft Extremities: normal inspection, no calf tenderness, no pedal edema Neurologic/Psychiatric: alert, normal mood/affect, oriented x 3 Skin: no rash Hospital Course Ever Short is a 31 yo at 5 weeks gestation who presents with urinary symptoms and R upper quadrant tenderness. She was seen in the ED on March 02 , discharged home with Keflex for a UTI. Her culture grew out pansensitive E. Coli, and she reported feeling better up until yesterday, March 06. She reported feeling unwell with nausea and R flank pain. Hx of pain primarily obtained through her translating, who reports this pain was different from the first episode when her pain was more suprapubic. She was tender to palpation of the R anterior upper quadrant, but did not have CVA tenderness. Renal US ruled out pyelonephritis and confirmed . Repeat UA suggestive of infection, though patient had been on Keflex while this was obtained. She was kept overnight, given a dose of IV Rocephin, and in the AM felt better. She reported occasional RUQ pain and it seemed to be MSK on exam. She was also found to be slightly anemic, so iron studies and thalassemia studies were also sent off. Dr. Duenas transitioned the patient to Ampicillin PO. She met with a health associate agent insurance sales as well during her stay. She was discharged home with her on 03/07/17 in good condition. Problem list: 1.) E Coli UTI, failure of outpt treatment with Keflex - Continue Ampicillin to complete 10 day course - Advised to establish and follow up with PCP after this time and obtain a repeat urine culture 2.) M[place] - Appt made with Dr Duenas for April 04 3.) Asthma - Continued her ProAir and Singulair tablet 4.) Anemia - Iron studies and hemoglobin electrophoresis obtained 5.) Follow up - Please follow up her urine culture and iron studies - [facility] STORE MANAGER Appt made for patient prior to discharge - Note: Patient has limited Divehi, speaks Arabic, is primary vehicle detailer Total Time Spent: Greater than 30 minutes This includes examination of the patient, discharge planning, medication reconciliation, and communication with other providers. Discharge Instructions Please refer to the electronic Patient Visit Report (Discharge Instructions) for additional information. Resident Tracking Resident Involvement: Resident Care Provided Care Provided: Adult Hospital Medicine Reviewed: Pt Seen/Exam by Me History no fever, back pain Constitutional: denies: fever Respiratory: negative: short of breath Cardiovascular: denies chest pain General Appearance: no apparent distress Respiratory: lungs clear, no respiratory distress Cardiovascular: regular rate, rhythm Gastrointestinal: soft Neurologic/Psychiatric: alert, oriented x 3 Skin Characteristics: warm/dry Assessment/Plan Resident Physician Supervision Note: I independently interviewed and examined the patient and verified the nugent history and physical, reviewed labs and image studies, discussed the case with the resident Dr. Monge and agree with the findings and care plan. Time spent in discharge 35 min
--- NOTE | 2017-03-07 11:46 | GYNECOLOGICAL CONSULTATION ---
DATE OF CONSULTATION: 03/07/2017 PRINCIPAL DIAGNOSIS: Intrauterine at approximately 7 weeks with probable pyelonephritis and urinary tract infection. HISTORY OF PRESENT ILLNESS: The patient is a 31-year-old 2, para 1-0-0-1 female, whose last normal menstrual period was 02/22/17. She had presented to the Emergency Room originally on March 02 with complaints of right lower quadrant pain and urinalysis and culture grew out E. coli. She was started on Keflex, but she persisted with the right lower quadrant pain and then was also noted to have flank pain in the Emergency Room. She had an ultrasound done on March 06, which shows a 6 weeks 5 day intrauterine with a heart rate of 138. There is a left corpus luteal cyst, but no evidence of any abnormalities on the right ovary. The renal ultrasound shows normal kidneys, no evidence of calculi or bandar hydronephrosis, although the right ureteral jet was not visualized. ALLERGIES: She has no allergies. PAST MEDICAL HISTORY: Significant for asthma, for which she uses an inhaler. MEDICATIONS: She is taking no medications at this time except for the antibiotics as noted before. OBSTETRICAL AND GYNECOLOGICAL HISTORY: Periods are generally regular. No history of PID, VD or herpes. She has had 1 full term spontaneous delivery without any complications. SOCIAL HISTORY: She does not smoke or drink. FAMILY HISTORY: Noncontributory. PAST SURGICAL HISTORY: Noncontributory. PHYSICAL EXAMINATION: ABDOMEN: Soft and nontender at this point. She has no flank pain bilaterally. PELVIC: Deferred at this time. EXTREMITIES: She has no calf tenderness. ASSESSMENT: A 7-week intrauterine gestation with complicated urinary tract infection. She is going to be discharged on ampicillin 500 mg p.o. q. 6 hours for 7 days. That prescription has been sent to the pharmacy at the [facility] and she will get a dose of the antibiotic prior to being discharged today. The patient will also be called from our office to set up her new OB visit, which should happen in the next 2-3 weeks. We will do a test of urine at that time. Her labs were all drawn except for HIV, which will be done through the office when she comes in for her first OB visit.
[2017-03-07] MEDS ORDERED: AMPICILLIN 250 MG CAP PO SCH (12:00)
[2017-03-07 12:41] VITALS: BP 89/55; PULSE 76; TEMP 37.4; O2SAT 97
[2017-03-07] MEDS ORDERED: CEFTRIAXONE SOD INJ 1 GM in DEXTROSE 5% ADD-VANTAGE 50ML 50 ML IV SCH (21:00)
[2017-03-07] MEDS ORDERED: MONTELUKAST SOD 10 MG TAB PO SCH (21:00)
== END 2017-03-07 13:15 | disposition home or self-care (01) | DRG 781 ==
LOC: C.EDB 19:53 → C.MS2W 03-07 00:09 → ENRESERV 03-07 00:44
PROVIDERS: ADMIT Student in an Organized Health Care Education/Training Program; ATTEND Family Medicine
DX: O23.41 Unspecified infection of urinary tract in pregnancy, first trimester (principal); B96.20 Unspecified Escherichia coli [E. coli] as the cause of diseases classified elsewhere; O99.511 Diseases of the respiratory system complicating pregnancy, first trimester; J45.909 Unspecified asthma, uncomplicated; O99.011 Anemia complicating pregnancy, first trimester; D64.9 Anemia, unspecified; Z3A.01 Less than 8 weeks gestation of pregnancy

== ENCOUNTER 2018-04-24 00:51 | Inpatient (IN) ==
--- NOTE | 2018-04-24 02:36 | History & Physical Report ---
Date of Service April 24, 2018 Assessment & Plan (1) 39 weeks gestation of : (2) No leakage of amniotic fluid into vagina: no evid of rom on slide, small pool, nitrazine pos. palpable bag. will ambulate and watch pads and pt aware may need spec exam again. History of Present Illness Chief Complaint: think she is leaking since 1230 this am. 04/24/18 Primary Care Provider: NO PCP 32yo at 39+wks who presented to ER and then sent to L&D with above cc. Has not had further leaking for nursing and pad fluid is nitrazine neg. Pt got up once and thought she was leaking but still nitrazine was negative. She denies recent intercourse. pnc c/b 1. beta thal 2. gdm 3. h/o rapid labor pnl rh pos, ri, gbs neg obh: x 1, sab x 1 gynh: nl paps, no stds pmh: asthma psh: neg allg: nkda meds: pnv singulair sh: no tob/etoh/drugs fh: no jorje anom or mr Allergies Allergy/AdvReac Type Severity Reaction Status Date / Time avocado Allergy Severe SHORTNESS Verified 04/16/18 06:17 OF BREATH cat dander Allergy Severe ASTHMA Verified 04/16/18 06:17 ATTACK chocolate flavor Allergy Severe SHORTNESS Verified 04/16/18 06:17 OF BREATH dog dander Allergy Severe ASTHMA Verified 04/16/18 06:17 ATTACK tree nut Allergy Severe SHORTNESS Verified 04/16/18 06:17 OF BREATH Home Medications Home Medications Medication Instructions Recorded Confirmed Type montelukast [Singulair] 1 mg PO PRN 04/24/18 History vit-iron fum-folic ac 1 mg PO DAILY 04/24/18 04/24/18 History [ Vitamin] Patient History Social History marital status: Feels Safe at Home: Yes Safety Concerns: Feels Safe At This Time Smoking Status: Never smoker Do You Dip or Chew Tobacco: No Second Hand Exposure: No Tobacco Cessation Education Requested by Patient: No Hx Alcohol Use: No Hx Substance Use: No Preferred Language: [place] Review of Systems per hpi Physical Exam 2 Vital Signs (Past 24 Hours): Last Vital Signs Temp 36.8 C 04/24/18 01:07 Pulse 88 04/24/18 01:04 Resp 18 01/30/19 01:07 BP 114/83 04/24/18 01:04 Constitutional: WD/WN, vitals as above Gastrointestinal (Abdomen): soft gravid nt Neurologic: grossly normal Genitourinary: Manual OB Exam: + amniotic fluid (SSE, small pool, no active leaking seen with valsalva. +nitrazine. no ferning seen. ) OB Exam Monitor Tracing: + external FHT monitor used (mod variability, categ 1), + external uterine monitor used (irreg), + category I and + normal FHT variability
--- NOTE | 2018-04-24 06:23 | Obstetrical Progress Note ---
Date of Service April 24, 2018 Assessment & Plan (1) 39 weeks gestation of : (2) PROM (premature rupture of membranes): now about 6hr from prom. if no increased ctx with rom, will plan pit. pt agreeable. Subjective has been feeling small amounts of fluid leak. some ctx. Physical Exam 2 Vital Signs (Past 24 Hours): Last Vital Signs Temp 36.8 C 04/24/18 03:27 Pulse 77 04/24/18 05:46 Resp 18 04/24/18 03:27 BP 108/74 04/24/18 05:46 Constitutional: WD/WN, vitals as above Respiratory: normal respiratory effort, lungs clear to auscultation Cardiovascular: Rate/Rhythm: regular rate and regular rhythm Gastrointestinal (Abdomen): soft gravid nt Musculoskeletal: no edema Neurologic: grossly normal Genitourinary: OB Exam Abdomen: + estimated weight (7#) Manual OB Exam: + cervical dilation 3 cm, + cervical effacement 70%, + station -2 and + amniotic fluid (trickle of fluid at introitus, +ferning, +nitrazine. arom forebag--> clear. ) clear OB Exam Monitor Tracing: + external FHT monitor used (135 mod variability, categ 1), + external uterine monitor used (q2-3), + category I and + normal FHT variability
[2018-04-24] MEDS ORDERED: LACTATED RINGER'S 1,000 ML IV PRN ×3 (06:25→10:20)
[2018-04-24] MEDS ORDERED: OXYTOCIN 30 UNITS/500 ML BAG IV PRN ×2 (06:25→06:27)
[2018-04-24] MEDS: LACTATED RINGER'S 1,000 ML IV SCH ×2 (06:33→09:16)
--- NOTE | 2018-04-24 07:18 | Anesthesiology Consultation ---
Date of Service April 24, 2018 Assessment & Plan (1) Encounter for pre-operative examination: Chart Review Chart Review: Patient NOT seen in Pre Admission Testing and Acceptable Risk for Labor Epidural Consults Requested none ASA ASA3 Proposed Anesthesia Anesthesia Type: Labor Epidural Risk / Benefits Reviewed With: PT / POA / Parent / Guardian, Accepts Plan and Informed Consent Obtained NPO Date Last Intake of Fluids: 04/24/18 Time Last Intake of Fluids: 09:35 Date Last Intake of Solids: 04/23/18 Time Last Intake of Solids: 21:00 History Height/Weight Height: 5 ft 3 in Weight: 68.492 kg Allergies Allergy/AdvReac Type Severity Reaction Status Date / Time avocado Allergy Severe SHORTNESS Verified 04/16/18 06:17 OF BREATH cat dander Allergy Severe ASTHMA Verified 04/16/18 06:17 ATTACK chocolate flavor Allergy Severe SHORTNESS Verified 04/16/18 06:17 OF BREATH dog dander Allergy Severe ASTHMA Verified 04/16/18 06:17 ATTACK tree nut Allergy Severe SHORTNESS Verified 04/16/18 06:17 OF BREATH Medications Home Medications Medication Instructions Recorded Confirmed Last Taken montelukast [Singulair] 1 mg PO PRN 04/24/18 Unknown vit-iron fum-folic ac 1 mg PO DAILY 04/24/18 04/24/18 04/21/18 [ Vitamin] Active Medications Generic Name Dose Route Start Last Admin Trade Name Freq PRN Reason Stop Dose Admin Lactated Ringer's 1,000 mls @ 125 mls/hr 04/24/18 06:30 04/24/18 10:14 Lr IV 04/26/18 06:29 125 mls/hr .Q8H MITALI Infusion Oxytocin 30 units in 500 mls @ 5 mls/hr 04/24/18 06:27 04/24/18 08:36 Pitocin IV 04/26/18 06:26 0.3 units/hr .Q24H PRN 5 mls/hr Labor Induction/Augmentation Titration Protocol 0.3 UNITS/HR Past Medical History Medical History Beta thalassemia Per chart - patient denies Gestational diabetes PROM (premature rupture of membranes) No leakage of amniotic fluid into vagina 39 weeks gestation of UTI (urinary tract infection) during (Acute) Influenza (Acute) Asthma Gum disease Past Anesthesia History No Family Hx of Anesthesia Complications anesthesia naive Motion Sickness Screening History of Motion Sickness: No Social History Smoking Status: Never smoker Do You Dip or Chew Tobacco: No Hx Alcohol Use: No Hx Substance Use: No Exercise / Class Metabolic Activity II 4-5 Yardwork/Stairs/Walk up hill Negative for chest pain but positive for sob. Review of Systems Patient denies history of abnormal bleeding or bleeding disorder. Patient denies active use of anticoagulants. Patient denies numbness, tingling or weakness in upper extremities. Patient denies numbness, tingling or weakness in his lower extremities. Patient denies active symptoms of GERD. Physical Exam Vital Signs Last Vital Signs Temp 36.7 C 04/24/18 08:56 Pulse 82 04/24/18 08:56 Resp 20 04/24/18 08:56 BP 102/65 04/24/18 08:56 Constitutional not obese (Gravid uterus) ENMT Mouth: + small oral opening; no TMJ abnormality Thyromental Distance: < 3.5 Finger Breadths Mallampati Class: III Neck normal visual inspection; neck extension not limited Respiratory normal respiratory effort Auscultation: lungs clear to auscultation bilaterally Cardiovascular Rate/Rhythm: regular rate and regular rhythm Heart Sounds: no murmur Psychiatric A+Ox3, euthymic affect Orientation: alert and oriented x 3 Testing Laboratory Results 04/24/18 07:43
[2018-04-24 07:51] LABS: Basophils # (auto) 0.01 K/uL (0-0.2); Basophils % (auto) 0.1 %; Eosinophils # (auto) 0.32 K/uL (0-0.5); Eosinophils % (auto) 2.3 %; Hemoglobin 9.3 g/dL (12.0-16.0); Immature Granulocytes % (auto) 0.7 %; Lymphocytes % (auto) 16.2 %; Mean Corpuscular Volume 63.9 fL (80-100); Mean Platelet Volume 10.6 fL (7.4-10.4); Monocytes # (auto) 1.45 K/uL (0.11-0.59); Monocytes % (auto) 10.2 %; Neutrophils # (auto) 10.01 K/uL (1.4-6.5); Neutrophils % (auto) 70.5 %; Platelet Count 243 K/uL (130-400); RDW Coefficient of Variation 15.2 % (11.5-14.5); Red Blood Count 4.85 M/uL (4.2-5.4); White Blood Count 14.19 K/uL (4.8-10.8)
[2018-04-24 08:13] LABS: Hypochromasia Present; Microcytosis Present; Polychromasia 1+
[2018-04-24] MEDS ORDERED: BUPIVACAINE 0.25% 30 ML VIAL ONE (08:47)
[2018-04-24] MEDS ORDERED: ePHEDrine sulfate 50 MG/ML AMP ONE (08:47)
[2018-04-24] MEDS ORDERED: fentaNYL citrate 100 MCG/2 ML VIAL ONE (08:48)
[2018-04-24] MEDS ORDERED: fentaNYL 2MCG/ML ROPIV 1.25MG/ML 100 ML BAG EPI ONE (08:48)
[2018-04-24] MEDS ORDERED: NALBUPHINE HCL INJ 10 MG/ML AMP IV PRN ×2 (10:20→14:40)
[2018-04-24] MEDS ORDERED: fentaNYL 2MCG/ML ROPIV 1.25MG/ML 100 ML BAG EPI PRN (10:20)
[2018-04-24] MEDS ORDERED: NALOXONE HCL 0.4 MG/1 ML VIAL/CARP IV PRN ×2 (10:20→14:40)
[2018-04-24] MEDS ORDERED: DiphenhydrAMINE HCL 50 MG/ML VIAL IV PRN ×2 (10:20→14:40)
[2018-04-24] MEDS ORDERED: ePHEDrine sulfate 50 MG/ML AMP IV PRN ×2 (10:20→14:40)
[2018-04-24] MEDS ORDERED: NALOXONE HCL 1 MG in SODIUM CHLORIDE 0.9% 1000ML 1,000 ML IV PRN ×2 (10:20→14:40)
[2018-04-24] MEDS ORDERED: ONDANSETRON INJ 2 MG/ML 2 ML VIAL IV PRN ×2 (10:20→14:40)
--- NOTE | 2018-04-24 11:18 | Obstetrical Progress Note ---
Date of Service April 24, 2018 Patient originally admitted by my partner she is currently 5 cm has been having some recurrent decelerations with contraction good variability in between -3 station I did confirm that the baby is in vertex position by ultrasound. Pitocin was stopped as the cells became recurrent and deep we would consider restarting however it will depend on the tracing we did discuss the possibility of section as well Physical Exam 2 Vital Signs (Past 24 Hours): Last Vital Signs Temp 36.8 C 04/24/18 10:50 Pulse 78 04/24/18 11:15 Resp 18 04/24/18 10:50 BP 111/75 04/24/18 11:03 Pulse Ox 95 04/24/18 11:15
[2018-04-24] MEDS ORDERED: CITRIC ACID/SODIUM CITRATE 15 ML UDC ONE (12:42)
[2018-04-24] MEDS ORDERED: LACTATED RINGER'S 1,000 ML IV SCH ×3 (12:45→23:00)
--- NOTE | 2018-04-24 12:45 | History & Physical Report ---
Date of Service April 24, 2018 Assessment & Plan (1) Non-reassuring electronic monitoring tracing: Reviewed options with the patient including Pitocin and . The patient does not wish to proceed with any more labor we have used an operations team leader as they speak Bel[place]ian. I discussed the risks of section including bleeding infection injury to bowel bladder ureter baby deep vein thrombosis and pulmonary embolus discussed the option of labor as well History of Present Illness Primary Care Provider: NO PCP Patient presented in labor for my partner received AROM and Pitocin unfortunately recurrent variable decelerations with contractions Pitocin had to be stopped. The patient has not progressed past 5 cm and continues to have variable decelerations I offered to restart the Pitocin or section the patient chooses section Allergies Allergy/AdvReac Type Severity Reaction Status Date / Time avocado Allergy Severe SHORTNESS Verified 04/16/18 06:17 OF BREATH cat dander Allergy Severe ASTHMA Verified 04/16/18 06:17 ATTACK chocolate flavor Allergy Severe SHORTNESS Verified 04/16/18 06:17 OF BREATH dog dander Allergy Severe ASTHMA Verified 04/16/18 06:17 ATTACK tree nut Allergy Severe SHORTNESS Verified 04/16/18 06:17 OF BREATH Home Medications Home Medications Medication Instructions Recorded Confirmed Type montelukast [Singulair] 1 mg PO PRN 04/24/18 History vit-iron fum-folic ac 1 mg PO DAILY 04/24/18 04/24/18 History [ Vitamin] Past Med/Surg History Medical History Beta thalassemia Per chart - patient denies Gestational diabetes PROM (premature rupture of membranes) No leakage of amniotic fluid into vagina 39 weeks gestation of UTI (urinary tract infection) during (Acute) Influenza (Acute) Asthma Gum disease Social History marital status: Current Living Situation: Spouse Other Information That Helps Us Care for You: No Feels Safe at Home: Yes Safety Concerns: Feels Safe At This Time Smoking Status: Never smoker Do You Dip or Chew Tobacco: No Hx Alcohol Use: No Hx Substance Use: No Beliefs That Will Affect Care: None Preferred Language: Bel[place]ian Communication Ability: Effective Salesperson Floor Coverings Required: Yes Physical Exam 2 Vital Signs (Past 24 Hours): Last Vital Signs Temp 36.7 C 04/24/18 12:00 Pulse 91 H 04/24/18 12:35 Resp 18 01/30/19 12:30 BP 99/61 L 04/24/18 12:33 Pulse Ox 96 04/24/18 12:35 Constitutional: well nourished and average body habitus Respiratory: normal respiratory effort, lungs clear to auscultation normal respiratory effort Cardiovascular: RRR, no murmur, no edema Rate/Rhythm: regular rate Heart Sounds: normal S1 and normal S2 Gastrointestinal (Abdomen): normal bowel sounds, soft, nontender, no hepatosplenomegaly Neurologic: awake Genitourinary: OB Exam Abdomen: + vertex Manual OB Exam: + cervical dilation 5 cm OB Exam Monitor Tracing: + external FHT monitor used and + variable decelerations
[2018-04-24] MEDS ORDERED: LIDOCAINE/EPINEPHRINE 2% 1:200,000 20 ML SDV ONE (12:52)
[2018-04-24] MEDS ORDERED: CEFAZOLIN 2,000 MG in SYRINGE 0 ML IV ONE (13:00)
[2018-04-24] MEDS ORDERED: CITRIC ACID/SODIUM CITRATE 15 ML UDC PO SCH (13:00)
[2018-04-24] MEDS ORDERED: OXYTOCIN 10 UNITS/ML VIAL ONE ×4 (13:37→14:06)
[2018-04-24] MEDS ORDERED: ONDANSETRON INJ 2 MG/ML 2 ML VIAL ONE (13:37)
[2018-04-24] MEDS ORDERED: MoRPHine SULFATE PF 1 MG/ML 10 ML AMP/VIAL ONE (13:45)
[2018-04-24] MEDS ORDERED: KETOROLAC 30 MG/ML VIAL ONE (14:03)
[2018-04-24] MEDS ORDERED: SENNA 8.6 MG TAB PO PRN (14:08)
[2018-04-24] MEDS ORDERED: MAGNESIUM HYDROXIDE SUSP 30 ML UDC PO PRN (14:08)
[2018-04-24] MEDS ORDERED: BENZOCAINE 20% AER SPR 82.5 GM CAN EXT PRN (14:08)
[2018-04-24] MEDS ORDERED: SUPERCREAM 0.870% 15 GM JAR EXT PRN (14:08)
[2018-04-24] MEDS ORDERED: DIPHTHERIA/TETANUS/PERTUSSIS 0.5 ML SYR/VIAL IM ONE (14:08)
[2018-04-24] MEDS ORDERED: HYDROCORTISONE ACETATE 25 MG SUPP PR PRN (14:08)
--- NOTE | 2018-04-24 14:10 | Post Operative Brief Note ---
Immediate Post Op Note v1 Date of Surgery April 24, 2018 Pre & Post Diagnosis Operation Date: 04/24/18 12:55 Pre-Op Diagnosis: Non-reassuring heart rate pattern Post-Op Diagnosis: Same; Delivery of a live male child at 1344 Procedure Operation Date: 04/24/18 12:55 Actual Procedures p Section in LD - Madelyn Holt MD, FACOG Surgeon Madelyn Holt MD, FACOG [place] Hand none Estimated Blood Loss 600 Findings Consistent with Post-Op Diagnosis Drains Miramontes Catheter
[2018-04-24] MEDS ORDERED: PHENYLEPHRINE HCL 10 MG/ML VIAL ONE (14:35)
[2018-04-24] MEDS ORDERED: MoRPHine SULFATE 2 MG/ML CARP IV PRN (14:40)
[2018-04-24] MEDS ORDERED: ACETAMINOPHEN 1000 MG/100 ML IV IV PRN (14:40)
[2018-04-24] MEDS ORDERED: MoRPHine SULFATE PF 1 MG/ML 10 ML AMP/VIAL EPI ONE (14:40)
[2018-04-24] MEDS ORDERED: LACTATED RINGER'S 500 ML IV PRN (14:40)
[2018-04-24] MEDS ORDERED: KETOROLAC 30 MG/ML VIAL IV PRN (14:40)
[2018-04-24] MEDS ORDERED: NALOXONE HCL 0.08 MG in SYRINGE 1.8 ML IV PRN (14:40)
--- NOTE | 2018-04-24 14:43 | Anesthesia Procedure Note ---
Date of Service April 24, 2018 Anesthesia Post Epidural Note Vital Signs Vital Signs: Temp Pulse Resp BP Pulse Ox 04/24/18 14:39 87 107/69 97 04/24/18 14:35 93 H 92 04/24/18 14:34 92 H 96 04/24/18 14:29 83 109/68 97 04/24/18 14:24 86 96 04/24/18 14:19 89 104/72 99 04/24/18 13:20 105 H 97 04/24/18 13:17 113 H 111/65 04/24/18 13:15 105 H 96 04/24/18 13:14 110 H 119/69 04/24/18 13:10 133 H 96 04/24/18 13:05 97 H 95 04/24/18 13:02 94 H 105/64 04/24/18 13:00 91 H 18 96 04/24/18 12:55 89 96 04/24/18 12:50 86 100/62 96 04/24/18 12:45 87 96 04/24/18 12:40 89 95 04/24/18 12:35 91 H 96 04/24/18 12:33 84 99/61 L 04/24/18 12:30 91 H 18 98 04/24/18 12:25 86 94 04/24/18 12:20 87 95 04/24/18 12:18 88 102/59 L 04/24/18 12:15 91 H 96 04/24/18 12:10 88 97 04/24/18 12:05 84 96 04/24/18 12:02 86 106/63 04/24/18 12:00 36.7 C 89 18 95 04/24/18 11:55 88 95 04/24/18 11:50 88 95 04/24/18 11:47 82 102/59 L 04/24/18 11:45 90 94 04/24/18 11:40 89 96 04/24/18 11:35 88 95 04/24/18 11:33 80 109/67 04/24/18 11:30 84 20 96 04/24/18 11:25 90 94 04/24/18 11:20 84 94 04/24/18 11:18 81 109/57 L 04/24/18 11:15 78 95 04/24/18 11:10 90 95 04/24/18 11:05 81 98 04/24/18 11:03 82 111/75 04/24/18 11:00 79 20 98 04/24/18 10:55 88 97 04/24/18 10:50 36.8 C 87 18 96 04/24/18 10:47 81 107/65 04/24/18 10:45 77 96 04/24/18 10:42 85 108/68 04/24/18 10:40 86 96 04/24/18 10:37 88 112/63 04/24/18 10:35 87 96 04/24/18 10:33 90 111/72 04/24/18 10:32 86 110/72 04/24/18 10:30 85 20 96 04/24/18 10:26 91 H 106/63 04/24/18 10:25 91 H 96 04/24/18 10:24 84 110/63 04/24/18 10:22 88 106/62 04/24/18 10:20 88 103/63 96 04/24/18 10:19 93 H 107/62 04/24/18 10:16 95 H 111/69 04/24/18 10:15 89 97 04/24/18 10:14 91 H 109/70 04/24/18 10:12 90 111/71 04/24/18 10:10 96 H 109/71 96 04/24/18 10:09 90 113/75 04/24/18 10:06 96 H 111/70 04/24/18 10:05 95 H 97 04/24/18 10:04 96 H 114/77 04/24/18 10:02 93 H 116/73 04/24/18 10:00 90 18 98 04/24/18 09:55 89 97 04/24/18 09:50 85 95 04/24/18 09:45 86 95 04/24/18 08:56 36.7 C 82 20 102/65 04/24/18 08:04 80 16 91/52 L 04/24/18 08:03 78 85/57 L 04/24/18 07:07 36.7 C 79 18 110/67 04/24/18 06:44 81 121/62 04/24/18 06:31 37.0 C 18 04/24/18 05:46 77 108/74 04/24/18 03:27 36.8 C 18 04/24/18 01:51 18 04/24/18 01:07 36.8 C 04/24/18 01:04 88 114/83 Pain Intensity Lower Abdomen: Pain Intensity: 0 Notes Mental Status: alert / awake / arousable and participated in evaluation Nausea / Vomiting: adequately controlled Pain: adequately controlled Airway Patency, RR, SpO2: stable & adequate BP & HR: stable & adequate Hydration State: stable & adequate Neuraxial Anesthesia: was administered and sensory block is resolving Anesthetic Complications: no major complications apparent and Pt Satisfied with anesthetic care Epidural: Removed without complications and With tip intact
[2018-04-24] MEDS ORDERED: NO NARCOTICS OR SEDATIVES SCH (14:45)
[2018-04-24] MEDS ORDERED: SODIUM CHLORIDE 0.9% 1000ML 1,000 ML IV SCH (14:45)
[2018-04-24 14:49] LABS: Base Excess Cord Arterial Bld -1.4 mEq/L (-9-1.8); CO2 Cord Arterial Blood 46 mmHg (39.1-73.5); HCO3 Cord Arterial Blood 25 mmol/L (19.7-28.5); pH Cord Arterial Blood 7.35 (7.1-7.38)
[2018-04-24 15:02] LABS: Base Excess Cord Venous Blood -2.3 mEq/L (-7.7-1.9); Cord Venous Blood HCO3 23 mmol/L (18.4-26.8); Cord Venous Blood PCO2 43 mmHg (30.4-57.2); Cord Venous Blood PO2 29 mmHg (14.1-43.3); Cord Venous Blood pH 7.35 (7.20-7.44)
--- NOTE | 2018-04-24 15:32 | Anesthesiology Progress Note ---
Date of Service April 24, 2018 Anesthesia Post Procedure Vital Signs Vital Signs: Temp Pulse Resp BP Pulse Ox 04/24/18 15:29 83 98 04/24/18 15:24 89 97 04/24/18 15:20 20 04/24/18 15:19 84 107/71 97 04/24/18 15:14 82 96 04/24/18 15:10 82 20 103/66 97 04/24/18 15:09 82 103/66 97 04/24/18 15:04 87 97 04/24/18 15:00 84 20 103/66 04/24/18 14:59 88 108/67 97 04/24/18 14:54 83 97 04/24/18 14:50 84 20 103/66 04/24/18 14:49 86 103/62 96 04/24/18 14:46 83 94 04/24/18 14:44 86 97 04/24/18 14:40 87 20 97 04/24/18 14:39 87 107/69 97 04/24/18 14:35 93 H 92 04/24/18 14:34 92 H 96 04/24/18 14:30 18 04/24/18 14:29 83 109/68 97 04/24/18 14:24 86 96 04/24/18 14:20 36.7 C 16 04/24/18 14:19 89 104/72 99 04/24/18 13:20 105 H 97 04/24/18 13:17 113 H 111/65 04/24/18 13:15 105 H 96 04/24/18 13:14 110 H 119/69 04/24/18 13:10 133 H 96 04/24/18 13:05 97 H 95 04/24/18 13:02 94 H 105/64 04/24/18 13:00 91 H 18 96 04/24/18 12:55 89 96 04/24/18 12:50 86 100/62 96 04/24/18 12:45 87 96 04/24/18 12:40 89 95 04/24/18 12:35 91 H 96 04/24/18 12:33 84 99/61 L 04/24/18 12:30 91 H 18 98 04/24/18 12:25 86 94 04/24/18 12:20 87 95 04/24/18 12:18 88 102/59 L 04/24/18 12:15 91 H 96 04/24/18 12:10 88 97 04/24/18 12:05 84 96 04/24/18 12:02 86 106/63 04/24/18 12:00 36.7 C 89 18 95 04/24/18 11:55 88 95 04/24/18 11:50 88 95 04/24/18 11:47 82 102/59 L 04/24/18 11:45 90 94 04/24/18 11:40 89 96 04/24/18 11:35 88 95 04/24/18 11:33 80 109/67 04/24/18 11:30 84 20 96 04/24/18 11:25 90 94 04/24/18 11:20 84 94 04/24/18 11:18 81 109/57 L 04/24/18 11:15 78 95 04/24/18 11:10 90 95 04/24/18 11:05 81 98 04/24/18 11:03 82 111/75 04/24/18 11:00 79 20 98 04/24/18 10:55 88 97 04/24/18 10:50 36.8 C 87 18 96 04/24/18 10:47 81 107/65 04/24/18 10:45 77 96 04/24/18 10:42 85 108/68 04/24/18 10:40 86 96 04/24/18 10:37 88 112/63 04/24/18 10:35 87 96 04/24/18 10:33 90 111/72 04/24/18 10:32 86 110/72 04/24/18 10:30 85 20 96 04/24/18 10:26 91 H 106/63 04/24/18 10:25 91 H 96 04/24/18 10:24 84 110/63 04/24/18 10:22 88 106/62 04/24/18 10:20 88 103/63 96 04/24/18 10:19 93 H 107/62 04/24/18 10:16 95 H 111/69 04/24/18 10:15 89 97 04/24/18 10:14 91 H 109/70 04/24/18 10:12 90 111/71 04/24/18 10:10 96 H 109/71 96 01/30/19 10:09 90 113/75 04/24/18 10:06 96 H 111/70 04/24/18 10:05 95 H 97 04/24/18 10:04 96 H 114/77 04/24/18 10:02 93 H 116/73 04/24/18 10:00 90 18 98 04/24/18 09:55 89 97 04/24/18 09:50 85 95 04/24/18 09:45 86 95 04/24/18 08:56 36.7 C 82 20 102/65 04/24/18 08:04 80 16 91/52 L 04/24/18 08:03 78 85/57 L 04/24/18 07:07 36.7 C 79 18 110/67 04/24/18 06:44 81 121/62 04/24/18 06:31 37.0 C 18 04/24/18 05:46 77 108/74 04/24/18 03:27 36.8 C 18 04/24/18 01:51 18 04/24/18 01:07 36.8 C 18 04/24/18 01:04 88 114/83 Pain Intensity Lower Abdomen: Pain Intensity: 0 Notes Mental Status: alert / awake / arousable and participated in evaluation Nausea / Vomiting: adequately controlled Pain: adequately controlled Airway Patency, RR, SpO2: stable & adequate BP & HR: stable & adequate Hydration State: stable & adequate Neuraxial Anesthesia: was administered and sensory block is resolving Anesthetic Complications: no major complications apparent
[2018-04-24] MEDS: OXYTOCIN 20 UNITS in LACTATED RINGER'S 1,000 ML IV SCH (15:42)
--- NOTE | 2018-04-24 18:18 | Operative Report ---
DATE OF OPERATION: 04/24/2018 PREOPERATIVE DIAGNOSIS: Nonreassuring heart rate. POSTOPERATIVE DIAGNOSIS: Nonreassuring heart rate. PROCEDURE: Low segment transverse section. SURGEON: Abhi Holt MD GAS FLOW REGULATOR: Yuly Thompson RN ANESTHETIC: Epidural. ESTIMATED BLOOD LOSS: 600 mL SPECIMENS: Cord gases, cord blood. COMPLICATIONS: None. DRAINS: Miramontes catheter. DISPOSITION: Labor and delivery. DESCRIPTION OF PROCEDURE: The patient had her epidural increased to allow . Miramontes catheter placed by nursing. The patient was prepped and draped in supine position with a leftward tilt. IV Ancef given preoperatively. Skin area tested with pickups with teeth and found to be adequate. Pfannenstiel incision made with a scalpel, cutting down through subcutaneous fat through the fascia in the midline. Fascia then extended laterally with the curved Zhang scissors and then fascia released from the attachment to the rectus muscles both superiorly and inferiorly. Entry into the peritoneal cavity was done bluntly with the milling machine operator gear's finger opening enlarged to allow for exposure. Bladder retractor placed. Metzenbaums used to dissect away the bladder flap and then a low segment transverse incision was made with the scalpel. Entry was done bluntly with a hemostat and then opening expanded with the milling machine operator gear's fingers. Baby was then delivered by flexion of the head and pressure on the abdomen by the care team assistant. Fluid was clear. No nuchal cord. It should be noted the baby was in a brow position. A live vigorous male . Cord clamped and cut. Cord gases obtained. Placenta removed. We ensured all placenta removed with a moist lap. Uterus exteriorized. IV Pitocin started. Uterus tone improved. Uterus closed in the usual fashion, a running 0-Monocryl locked and a second reinforcing layer of 0-Monocryl nonlocked. After generous irrigation and suction of the cul-de-sac and bladder flap regions, uterus was placed back in the peritoneal cavity and reinspected and hemostasis was excellent. Fascia closed with 0 Vicryl. Space fat closed with 3-0 Vicryl. Note, we irrigated prior and 4-0 subcuticular Monocryl closure. Steri-Strips applied and bandaging and urine was clear at the end of the procedure. Sponge and instrument counts correct. I attest to the content of the Intraoperative Record and any orders documented therein. Any exception s are noted below.
[2018-04-24] MEDS: SIMETHICONE 80 MG CHEW PO SCH (20:57)
[2018-04-24] MEDS: DOCUSATE SODIUM 100 MG CAP PO SCH (20:57)
[2018-04-25] MEDS: OXYTOCIN 20 UNITS in LACTATED RINGER'S 1,000 ML IV SCH (00:04)
[2018-04-25 06:23] LABS: Basophils # (auto) 0.01 K/uL (0-0.2); Basophils % (auto) 0.1 %; Eosinophils % (auto) 0.6 %; Hematocrit (blood only) 28.4 % (37-47); Hemoglobin 8.7 g/dL (12.0-16.0); Immature Granulocytes # (auto) 0.05 K/uL (0.00-0.02); Immature Granulocytes % (auto) 0.3 %; Lymphocytes % (auto) 10.7 %; Mean Corpuscular Hgb Conc 30.6 g/dL (32-36); Mean Platelet Volume 10.8 fL (7.4-10.4); Monocytes # (auto) 1.11 K/uL (0.11-0.59); Monocytes % (auto) 6.3 %; Neutrophils # (auto) 14.57 K/uL (1.4-6.5); Platelet Count 239 K/uL (130-400); RDW Coefficient of Variation 15.1 % (11.5-14.5); RDW Standard Deviation 34.8 fL (36.4-46.3); Red Blood Count 4.51 M/uL (4.2-5.4); White Blood Count 17.74 K/uL (4.8-10.8)
--- NOTE | 2018-04-25 06:33 | Obstetrical Progress Note ---
Date of Service <Jeff Hightower MD - Last Filed: 04/25/18 06:33> April 25, 2018 Assessment & Plan <Jeff Hightower MD - Last Filed: 04/25/18 06:33> (1) delivery delivered: Ever Kelly" is a 32yo at 39+wks who presented to ER concerned for leakage of fluids, nitrazine positive on recheck, who was admitted for induction of labor but had non reassuring heart tracings and is now s/p c/s POD#1. - Rh+, GBS-, RI - Feels OK today, sleepy. Moderate ambulation. Drinking liquids, had some nausea last night. Has voided and is passing gas. Encourage ambulation, advance diet as tolerated. - Ondansetron 4mg IV Q6H PRN for nausea - Breast feeding counseling, routine nurse care this AM - Remove compression dress at 24 hours - Pain well controlled with ibuprofen 600mg Q4H PRN. - Routine post-op care - After discharge will have [address] Holt. (2) Non-reassuring electronic monitoring tracing: (3) 39 weeks gestation of : Subjective <Jeff Hightower MD - Last Filed: 04/25/18 06:33> Ambulation: limited ambulation Voiding: no voiding problems Diet Tolerance:: clear liquids Lochia:: Moderate Feeding Type:: breast feeding (not sure if will be able to breast feed, will think about today) Current Pain Level(1-10): 5 Review of Systems Denies fever, chills, sweats Denies shortness of breath, difficulty breathing, chest pain, palpitations, chest pressure. Denies breast pain. Denies dysuria. Denies headache. Physical Exam <Jeff Hightower MD - Last Filed: 04/25/18 06:33> Vital Signs (Past 24 Hours) Last Vital Signs Temp 37.6 C H 04/25/18 04:00 Pulse 102 H 04/25/18 04:00 Resp 18 04/25/18 06:00 BP 113/76 04/25/18 04:00 Pulse Ox 96 04/25/18 06:00 General: Alert, oriented. No acute distress. Cardiac: Regular rate and rhythm, no murmurs/rubs/gallops. Respiratory: Clear to auscultation anterior and posteriorly, no wheezes/rales/ rhonchi. No increased work of breathing. Symmetrical chest rise. No respiratory distress. Abdomen: Soft, nontender, nondistended. Bowel sounds present. Uterus: Uterine fundus firm, palpable at-1cm above umbilicus. Surgical compression dressing in place, C/D/I Lower Extremities: No lower extremity edema or swelling. No deep calf pain. Ray's negative bilaterally. <Madelyn Holt MD, FACOG - Last Filed: 04/25/18 06:49> Co-Signing Physician Notes Resident Physician Supervision Note: I interviewed and examined the patient. Discussed with Dr. Hightower and agree with findings and plan as documented in the note. Any exceptions or clarifications are listed here: [None] Documented By: Madelyn Holt MD, FACOG Resident Activity Tracking <Jeff Hightower MD - Last Filed: 04/25/18 06:33> Resident Involvement: Resident Care Provided Care Provided: Adult Hospital Medicine
[2018-04-25 06:59] LABS: Hypochromasia Present; Microcytosis Present
[2018-04-25] MEDS: LACTATED RINGER'S 1,000 ML IV SCH (08:17)
[2018-04-25] MEDS: DOCUSATE SODIUM 100 MG CAP PO SCH ×2 (08:18→21:58)
[2018-04-25] MEDS: PRENATAL VITAMIN 1 TAB PO SCH (08:18)
[2018-04-25] MEDS: SIMETHICONE 80 MG CHEW PO SCH ×3 (08:18→17:45)
[2018-04-25] MEDS ORDERED: KETOROLAC 30 MG/ML VIAL IV PRN (14:45)
[2018-04-25] MEDS ORDERED: MEPERIDINE HCL 50 MG/ML CARP IV PRN (14:45)
[2018-04-25] MEDS ORDERED: ZOLPIDEM TARTRATE 5 MG TAB PO PRN (14:45)
[2018-04-25] MEDS ORDERED: DC INTRASPINAL MORPHINE SCH (14:45)
[2018-04-25] MEDS ORDERED: ONDANSETRON INJ 2 MG/ML 2 ML VIAL IV PRN (14:45)
[2018-04-25] MEDS ORDERED: PROMETHAZINE HCL 25 MG in SODIUM CHLORIDE 0.9% 50 ML IV PRN (14:45)
[2018-04-25] MEDS ORDERED: DiphenhydrAMINE HCL 50 MG/ML VIAL IV PRN (14:45)
[2018-04-25] MEDS: IBUPROFEN 600 MG TAB PO PRN (15:09)
[2018-04-25] MEDS: OXYCODONE/ACETAMINOPHEN 5mg/325mg TAB PO PRN ×2 (15:11→23:59)
[2018-04-25] MEDS ORDERED: BISACODYL 5 MG TABEC PO SCH (20:00)
[2018-04-26 07:09] LABS: Hematocrit (blood only) 27.8 % (37-47); Hemoglobin 8.3 g/dL (12.0-16.0)
[2018-04-26] MEDS: FERROUS SULFATE 325 MG TAB PO SCH (08:38)
[2018-04-26] MEDS: SIMETHICONE 80 MG CHEW PO SCH ×4 (08:38→21:15)
[2018-04-26] MEDS: PRENATAL VITAMIN 1 TAB PO SCH (08:38)
[2018-04-26] MEDS: DOCUSATE SODIUM 100 MG CAP PO SCH ×2 (08:39→21:15)
[2018-04-26] MEDS: OXYCODONE/ACETAMINOPHEN 5mg/325mg TAB PO PRN ×3 (08:39→23:30)
[2018-04-26] MEDS: IBUPROFEN 600 MG TAB PO PRN ×4 (08:39→23:30)
[2018-04-26] MEDS ORDERED: BISACODYL 10 MG SUPP PR PRN (14:08)
--- NOTE | 2018-04-27 06:15 | Obstetrical Progress Note ---
Date of Service <Jeff Hightower MD - Last Filed: 04/27/18 06:15> April 27, 2018 Assessment & Plan <Jeff Hightower MD - Last Filed: 04/27/18 06:15> (1) delivery delivered: Ever Kelly" is a 32yo at 39+wks who presented to ER concerned for leakage of fluids, nitrazine positive on recheck, who was admitted for induction of labor but had non reassuring heart tracings and is now s/p c/s POD#2. - Rh+, GBS-, RI - Surgical incision well healing, no erythema/discharge/dehiscence - Doing well today, eating well, voiding well. - Pain well controlled with ibuprofen 600mg Q4H PRN. - Routine post-op care - After discharge will have [address] Holt. (2) Non-reassuring electronic monitoring tracing: (3) 39 weeks gestation of : Subjective <Jeff Hightower MD - Last Filed: 04/27/18 06:15> Ambulation: ambulating normally Voiding: no voiding problems Passing Gas:: Yes Diet Tolerance:: regular diet Lochia:: Small Feeding Type:: breast feeding Current Pain Level(1-10): 1 Review of Systems Denies fever, chills, sweats Denies shortness of breath, difficulty breathing, chest pain, palpitations, chest pressure. Denies breast pain. Denies dysuria. Denies headache. Physical Exam <Jeff Hightower MD - Last Filed: 04/27/18 06:15> Vital Signs (Past 24 Hours) Last Vital Signs Temp 37 C 04/26/18 23:30 Pulse 91 H 04/26/18 23:30 Resp 16 04/26/18 23:30 BP 109/74 04/26/18 23:30 Pulse Ox 98 04/26/18 23:30 General: Alert, oriented. No acute distress. Cardiac: Regular rate and rhythm, no murmurs/rubs/gallops. Respiratory: Clear to auscultation anterior and posteriorly, no wheezes/rales/ rhonchi. No increased work of breathing. Symmetrical chest rise. No respiratory distress. Abdomen: Soft, nontender, nondistended. Bowel sounds present. Uterus: Uterine fundus firm, palpable 2-3 cm below umbilicus. Surgical incision well healing, without erythema/discharge/dehiscense Lower Extremities: No lower extremity edema or swelling. No deep calf pain. Ray's negative bilaterally. <Jerilyn Solomon MD - Last Filed: 04/27/18 07:42> Co-Signing Physician Notes I have examined the patient and agree with the resident note above. Resident Activity Tracking <Jeff Hightower MD - Last Filed: 04/27/18 06:15> Resident Involvement: Resident Care Provided Care Provided: Adult Hospital Medicine
[2018-04-27] MEDS: IBUPROFEN 600 MG TAB PO PRN (06:24)
[2018-04-27] MEDS: OXYCODONE/ACETAMINOPHEN 5mg/325mg TAB PO PRN (06:25)
[2018-04-27] MEDS: SIMETHICONE 80 MG CHEW PO SCH (08:13)
[2018-04-27] MEDS: PRENATAL VITAMIN 1 TAB PO SCH (08:13)
[2018-04-27] MEDS: DOCUSATE SODIUM 100 MG CAP PO SCH (08:13)
[2018-04-27] MEDS: FERROUS SULFATE 325 MG TAB PO SCH (08:13)
--- NOTE | 2018-05-03 10:21 | Discharge Summary ---
HISTORY OF PRESENT ILLNESS AND HOSPITAL COURSE: The patient had a section on April 24. Operative note dictated. Course in hospital was uncomplicated, and by April 27, she was assessed by the discharge team. At that time, she was ambulating, tolerating oral diet, pain was well controlled and had no extremity pain. PHYSICAL EXAMINATION: VITAL SIGNS: Stable. She was afebrile. CHEST: Clear. ABDOMEN: Soft. Uterus firm. Incision clean, dry and intact. EXTREMITIES: Negative. IMPRESSION AND PLAN: Postop from , discharged home on pain medication. Told to follow up in the office.
== END 2018-04-27 13:45 | disposition home or self-care (01) | DRG 788 ==
LOC: OPB 00:51 → 4S1 00:56 → 4S2 16:30